=== PATIENT | female | born 1995 ===

== ENCOUNTER 2020-01-17 12:26 | Emergency (ER) | payer SELFPAY ==
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
[2020-01-17 15:02] VITALS: BP 114/54
== END 2020-01-17 15:03 | disposition home or self-care (01) ==
LOC: ED 12:26
DX: R51.9 Headache, unspecified (principal); J45.909 Unspecified asthma, uncomplicated; Z79.899 Other long term (current) drug therapy; V89.2XXA Person injured in unspecified motor-vehicle accident, traffic, initial encounter; Y93.89 Activity, other specified; Y92.410 Unspecified street and highway as the place of occurrence of the external cause; Y99.8 Other external cause status
CPT/HCPCS: 99281